=== PATIENT | female | born 1945 | race African-American/Black ===

== ENCOUNTER 2018-06-20 05:43 | Day surgery (SDC) | payer MEDICARE, OTHER ==
[~2018-06-20] VITALS: Ht 162.6 cm; Wt 84.8 kg
[~2018-06-20 05:43] MED LIST: DEXT15DR5 EACHEYE; LACTATED RINGERS 1,000 ML IV SCH; LIP40 PO; LISI10TA5 PO; OXYM30SP NS; TRIA1TAB92 PO
[2018-06-20 06:24] LABS: CLARITY URINE CLEAR (CLEAR); COLOR URINE YELLOW (YELLOW); KETONES URINE NEGATIVE (NEGATIVE); LEUKOCYTE ESTERASE URINE 2+ (NEGATIVE); NITRITE URINE NEGATIVE (NEGATIVE); OCCULT BLOOD URINE NEGATIVE (NEGATIVE); PH URINE 7.5 (4.5-8.0); PROTEIN URINE NEGATIVE (NEGATIVE); UROBILINOGEN URINE 0.2 E.U./dL (0.2-1.0)
[2018-06-20] MEDS ORDERED: SKIN ADHESIVE 0.7 GM EA TOP ONE (06:42)
[2018-06-20] MEDS ORDERED: BUPIVACAINE HCL 0.5% (5MG/ML) 50ML ONE (06:42)
[2018-06-20] MEDS ORDERED: INDOCYANINE GREEN 25 MG VIAL IV ONE (07:24)
[2018-06-20] MEDS ORDERED: VECURONIUM BROMIDE 10 MG/VIAL IV ONE (07:25)
[2018-06-20] MEDS ORDERED: PROPOFOL 200MG/20ML VIAL IV ONE (07:25)
[2018-06-20] MEDS ORDERED: LIDOCAINE HCL/PF 1% 10 MG/ML 5ML VIAL ONE (07:25)
[2018-06-20] MEDS ORDERED: DEXAMETHASONE 4MG/ML 1ML VIAL ONE (07:25)
[2018-06-20] MEDS ORDERED: PHENYLEPHRINE HCL 10 MG/ML 1ML (IV VIAL) IV ONE (07:26)
[2018-06-20] MEDS ORDERED: LEVOFLOXACIN 500MG PREMIX 100 ML IV ONE (07:27)
[2018-06-20] MEDS ORDERED: FENTANYL CITRATE/PF 50MCG/ML 2ML VIAL ONE (07:51)
[2018-06-20] MEDS ORDERED: GLYCOPYRROLATE 0.2 MG/ML 2ML VIAL ONE (08:39)
[2018-06-20] MEDS ORDERED: NEOSTIGMINE METHYLSULFATE 1MG/ML 10 ML VIAL ONE (08:39)
[2018-06-20] MEDS ORDERED: ONDANSETRON HCL 4MG/2ML INJ IV PRN (09:00)
[2018-06-20] MEDS ORDERED: KETOROLAC 30MG/ML VIAL IV NR (09:00)
[2018-06-20] MEDS: HYDROMORPHONE HCL/PF 2MG/ML CPJ IV PRN ×3 (09:05→09:24)
[2018-06-20] MEDS ORDERED: HYDRALAZINE 20MG/ML VIAL IV NR (09:15)
[2018-06-20] MEDS ORDERED: KETOROLAC 30MG/ML VIAL ONE (09:15)
[2018-06-20] MEDS ORDERED: HYDROCODONE/ACETAMINOPHEN 5/325MG TABLET PO PRN (11:00)
[2018-06-20 11:05] VITALS: BP 116/65
== END 2018-06-20 12:10 | disposition home or self-care (01) ==
LOC: OR 05:43
PROVIDERS: ATTEND Surgery
DX: K80.10 Calculus of gallbladder with chronic cholecystitis without obstruction (principal); K42.9 Umbilical hernia without obstruction or gangrene; I10 Essential (primary) hypertension; J44.9 Chronic obstructive pulmonary disease, unspecified; I49.9 Cardiac arrhythmia, unspecified; E66.3 Overweight; E78.00 Pure hypercholesterolemia, unspecified; Z98.890 Other specified postprocedural states; Z79.899 Other long term (current) drug therapy; Z88.8 Allergy status to other drugs, medicaments and biological substances
CPT/HCPCS: 47562; 49585; 71045; 81003; 88304; J1100; J1170; J1885; J1956; J2370; J2405; J2710; J3010; J3490; Q9957; J2704; J7120

== ENCOUNTER 2019-07-22 08:37 | Emergency (ER) | payer MEDICARE, OTHER ==
[~2019-07-22] VITALS: Ht 160 cm; Wt 89.0 kg
[~2019-07-22 08:37] MED LIST changes: -LACTATED RINGERS 1,000 ML IV SCH
[2019-07-22] MEDS ORDERED: LIDOCAINE HCL/EPINEPHRINE 1%-EPI 1:100,000 20 ML VIAL INFIL ONE (12:30)
[2019-07-22] MEDS ORDERED: TETANUS, DIPHTHERIA, PERTUSSIS VAC/PF 0.5ML (>7YR OLD) IM ONE (13:45)
[2019-07-22 13:47] VITALS: BP 155/76
== END 2019-07-22 13:55 | disposition home or self-care (01) ==
LOC: ER 08:54
DX: S92.492A Other fracture of left great toe, initial encounter for closed fracture (principal); S01.01XA Laceration without foreign body of scalp, initial encounter; W01.0XXA Fall on same level from slipping, tripping and stumbling without subsequent striking against object, initial encounter; Y93.89 Activity, other specified; Y92.89 Other specified places as the place of occurrence of the external cause; Y99.8 Other external cause status; I10 Essential (primary) hypertension; Z90.49 Acquired absence of other specified parts of digestive tract; Z98.890 Other specified postprocedural states; Z79.899 Other long term (current) drug therapy; Z88.1 Allergy status to other antibiotic agents
CPT/HCPCS: 12001; 70450; 72125; 73630; 90471; 90715; 99284; J3490